=== PATIENT | female | born 2000 | race Two or more races ===

== ENCOUNTER 2019-02-13 20:07 | Emergency (ER) | payer OTHER ==
[~2019-02-13] VITALS: Ht 167.6 cm; Wt 80.7 kg
[2019-02-13] MEDS ORDERED: ACETAMINOPHEN/CODEINE#3 (300/30mg) TAB PO ONE (22:45)
[2019-02-13 22:59] VITALS: BP 129/77
[2019-02-13] MEDS ORDERED: methylPREDNISolone SOD SUCC 125 MG/2 ML VL IM ONE (23:00)
== END 2019-02-13 22:33 | disposition home or self-care (01) ==
LOC: ER 20:15
DX: S46.912A Strain of unspecified muscle, fascia and tendon at shoulder and upper arm level, left arm, initial encounter (principal); X50.0XXA Overexertion from strenuous movement or load, initial encounter; Y93.89 Activity, other specified; Y99.8 Other external cause status; Y92.89 Other specified places as the place of occurrence of the external cause
CPT/HCPCS: 29105; 73030; 96372; 99283; J2930

== ENCOUNTER 2019-10-10 01:02 | Emergency (ER) | payer MEDICAID, OTHER ==
[~2019-10-10] VITALS: Ht 167.6 cm; Wt 87.1 kg
[2019-10-10 01:21] VITALS: BP 144/80
== END 2019-10-10 04:30 | disposition left against medical advice (07) ==
LOC: EDBD 01:02 → ER 01:08
DX: M79.10 Myalgia, unspecified site (principal); Z53.21 Procedure and treatment not carried out due to patient leaving prior to being seen by health care provider
CPT/HCPCS: 70450; 72125; 73030; 73590; 74176